=== PATIENT | male | born 1970 | race Caucasian/White ===

== ENCOUNTER 2018-01-09 16:41 | Emergency (ER) | payer OTHER ==
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
== END 2018-01-09 17:35 | disposition home or self-care (01) ==
LOC: VM.ED 16:41
DX: S30.0XXA Contusion of lower back and pelvis, initial encounter (principal); F17.210 Nicotine dependence, cigarettes, uncomplicated; W22.8XXA Striking against or struck by other objects, initial encounter
CPT/HCPCS: 99284